=== PATIENT | female | born 1965 | race Caucasian/White ===

== ENCOUNTER → 2019-01-24 | Outpatient (CLI) | payer OTHER, MEDICARE, MEDICAID ==
--- NOTE | 2019-01-28 01:36 | ECWPNPC ---
PATIENT NAME: FRANCES BLISS : 1965 GENDER: FEMALE VISIT DATE: 01/24/2019 DISCHARGE DATE: 01/24/19 1617 VISIT LOCKED DATE TIME: PHYSICIAN: FLORINDA KIM RESOURCE: FLORINDA KIM REASON FOR APPOINTMENT 1. NON COMP BACK PAIN HISTORY OF PRESENT ILLNESS NEW PATIENT CONSULT: WHEN DID YOUR PAIN FIRST START? ACCIDENT AT WORK. BRIEFLY DESCRIBE HOW YOUR PAIN STARTED? CONSTANT, STEADY STABBING AND ACHY. HOW DOES YOUR PAIN CHANGE WITH TIME? WORSENS WITH PROLONGED SITTING. DOES YOUR PAIN AWAKEN YOU FROM SLEEP? YES . HOW MANY HOURS OF SLEEP DO YOU NORMALLY GET? 6. ANY DIAGNOSTIC TESTING? MRI 2017. FACILITY WHERE TESTS WERE DONE? OTHER FACILITY. PAIN TREATMENT TREATMENT YES CANCER HAVE YOU EVER HAD ANY TYPE OF CANCER?NO NO. 53 YR OLD FEMALE WITH HX OF WORK RELATED BACK INJURY. MRI 2017: SHOWS MODERATELY SEVERE STENOSIS AT L4-5DISC BULGE L2-3L5-S1 DISC BULGE ABUTS LEFT S1 NERVE DISPLACING POSTERIORLY BUT NOT CAUSING CANAL STENOSIS.UNDER CARE OF PCP AND TAKES OPIATES: OXYCODONE 10MG X 4 TIMES/DAYSGABAPENTIN 800MG X3 TIMESPAIN 07/22 AND RADIATES DOWN TO BOTH HIPS AND DOWN LEGS,. PAIN SCREENING: PATIENT HAS A COMPLAINT OF ACUTE OR CHRONIC PAIN :YES FALL RISK SCREENING: SCREENING : NO FALLS IN THE PAST YEAR. DUARTE INVENTORY: QUESTIONNAIRE ASSESSEDTBD SCORE VALUE CALCULATED TBD CURRENT MEDICATIONS TAKING ZOLOFT 100 MG TABLET 2ABLET ORALLY ONCE A DAY TAKING BUSPIRONE HCL 10 MG TABLET 1 TABLET ORALLY TWICE A DAY TAKING ALBUTEROL SULFATE (2.5 MG/3ML) 0.083% NEBULIZATION SOLUTION 3 ML NEEDED INHALATION THREE TIMES A DAY TAKING BUPROPION HCL 100 MG TABLET 2 TABLET ORALLY TWICE A DAY TAKING FOLIC ACID 1 MG TABLET 1 TABLET ORALLY ONCE A DAY TAKING HYDROXYCHLOROQUINE SULFATE 200 MG TABLET 1 TABLET WITH FOOD OR MILK ORALLY BID TAKING METHOTREXATE 2.5 MG TABLET ORALLY 4 TABS TWICE A DAY TAKING GABAPENTIN 400 MG CAPSULE 2 CAPSULE ORALLY TID TAKING OMEPRAZOLE 20 MG CAPSULE DELAYED RELEASE 1 CAPSULE ORALLY ONCE A DAY TAKING OXYCODONE HCL 10 MG TABLET 1 TABLET NEEDED ORALLY EVERY 6 HRS TAKING SERTRALINE HCL 100 MG TABLET 2 TABLET ORALLY ONCE A DAY NOT-TAKING PREDNISONE 20 MG TABLET 3 TABLETS WITH FOOD OR MILK ORALLY ONCE A DAY NOT-TAKING LIDODERM 5 % PATCH 1 PATCH TO INTACT SKIN REMOVE AFTER 12 HOURS TO LOW BACK EXTERNALLY ONCE A DAY NOT-TAKING FLEXERIL 10 MG TABLET 1 TABLET ORALLY TID MEDICATION LIST REVIEWED AND RECONCILED WITH THE PATIENT PAST MEDICAL HISTORY FATTY LIVER SMOKER HERNIATED DISCS ADRENAL MASS ANXIETY CHRONIC PAIN DEPRESSION FIBROMYALGIA HYPERLIPDEMIA SPINAL STENOSIS PSORIATAIC ARTHRITIS MIGRAINES SLEEP APNEA RIGHT CERVICAL RADICULOPATHY REFLUX ASTHMA ALLERGIES N.K.D.A. SURGICAL HISTORY C SECTION 1987 D & C FAMILY HISTORY FATHER: MOTHER: SON(S): ALIVE DAUGHTER(S): ALIVE UNKNOWN MUCH HISTORY SHE WAS ADOPTED. SOCIAL HISTORY GENERAL: TOBACCO USE ARE YOU A:CURRENT SMOKER ARE YOU INTERESTED IN QUITTING?THINKING ABOUT QUITTING COUNSELED THE PATIENT ON SMOKING CESSATION, EDUCATION [id number]/15/2019 HOW MANY CIGARETTES A DAY DO YOU SMOKE?6-10 PATIENT COUNSELED ON THE DANGERS OF TOBACCO USE AND URGED TO QUIT:01/24/2019 LUNG CANCER SCREENING SMOKING STATUS:CURRENT SMOKER IS THE PATIENT BETWEEN THE AGE OF 57 AND 79?YES HAS THE PATIENT EVER BEEN DIAGNOSED WITH LUNG CANCER?NO ALCOHOL SCREENING DID YOU HAVE A DRINK CONTAINING ALCOHOL IN THE PAST YEAR?NO POINTS0 INTERPRETATIONNEGATIVE RECREATIONAL DRUG USE DRUG USE?NO CAFFEINE CAFFEINE USE?YES HOW OFTEN AND HOW MUCH? DAILY A COUPLE CUPS ORTHODOX [id number] YARSANI LANGUAGE LANGUAGES SPOKEN:SWEDISH EDUCATION LEVEL OF EDUCATION:FINISHED COLLEGE LEARNING BARRIERS / SPECIAL NEEDS SPECIAL DEVICES?YES CPAP DOMESTIC VIOLENCE DO YOU FEEL SAFE IN YOUR ENVIRONMENT?YES OCCUPATION: DISABLED. DIET: REGULAR. EXERCISE: WALKS. MARITAL STATUS: .. OTHERS AT HOME: CUSTODY OF GRANDSON. PAIN CLINIC PFS, CLERGY, PUBLIC HEALTH REFERRALS CLERGY REFERRAL NEEDED?NO WAS THE PROVIDER NOTIFIED OF ANY PERTINENT INFO?NO PFS REFERRAL NEEDED?NO PUBLIC HEALTH REFERRAL NEEDED?NO ADVANCE DIRECTIVE ADVANCE DIRECTIVE DISCUSSED WITH PATIENT:YES ISCUSSED WITH PT AND SHE DECLINES ANY PRINTED MATERIAL AT THIS TIME OR ANY ASSISTANCE FILLING IT OUT HOSPITALIZATION/MAJOR DIAGNOSTIC PROCEDURE SURGERY RELATED REVIEW OF SYSTEMS REVIEWED BY: PROVIDER: ROBB Hair CONSTITUTIONAL: ANY CHANGE IN YOUR MEDICAL CONDITION? NO . CHILLS NO . FEVER NO . INFECTION: DO YOU HAVE NEW INFECTIONS? NO . DO YOU HAVE HISTORY OF MRSA? NO . MUSCULOSKELETAL: ANY NEW PATTERNS OF PAIN OR NUMBNESS? INCREASED PAIN BILATERAL LOWER BACK AND AROUND TO HIPS DOWN LEG TO FEEL . SYTEMIC LUPUS NO . GASTROENTEROLOGY: ANY NEW CHANGE IN BOWEL CONTROL? NO . BARRETTS ESOPHAGUS NO . CIRRHOSIS NO . HEPATITIS NO . LIVER FAILURE NO . ACID REFLUX NO . UNEXPLAINED WEIGHT LOSS NO . GENITOURINARY: ANY NEW CHANGE IN BLADDER CONTROL? NO . IS THERE A CHANCE YOU COULD BE ? NO . HEMATOLOGY/LYMPH: DO YOU TAKE ANY BLOOD THINNERS? (FOR EXAMPLE- COUMADIN, PLAVIX, AGGRENOX, PLATEL, PRADAXA, OR XARELTO) NO . WHEN WAS YOUR LAST DOSE? DATE: TIME: . LOW PLATELET COUNT NO . SICKLE CELL DISEASE NO . VON WILLIEBRANDS NO . FACTOR V LEIDEN NO . THALLASEMIA NO . ANEMIA NO . EASY BRUISING NO . NEUROLOGY: HAVE YOU FALLEN IN THE PAST 12 MONTHS? NO . ANY NEW EXTREMITY NUMBNESS OR WEAKNESS? NO . HEAD INJURY NO . DEMENTIA NO . CEREBRAL PALSY NO . MULTIPLE SCLEROSIS NO . DIZZINESS NO . HEADACHE NO . STROKES NO . VERTIGO NO . CARDIOLOGY: DO YOU HAVE A PACEMAKER OR DEFIBRILLATOR? NO . ANGINA NO . HEART ATTACK NO . HEART SURGERY NO . CONGESTIVE HEART FAILURE/FLUID OVERLOAD NO . CHEST PAIN NO . HIGH BLOOD PRESSURE NO . IRREGULAR HEART BEAT NO . RESPIRATORY: HAVE YOU BEEN SICK IN THE PAST WEEK? NO . FEVER NO . FLU LIKE SYMPTOMS? NO . CPAP NO . BYPAP NO . ASTHMA YES . EMPHYSEMA NO . CHRONIC LUNG DISEASES NO . SHORTNESS OF BREATH ON EXERTION NO . DO YOU USE ANY TYPE OF TOBACCO (SMOKE, SMOKELESS, CHEW)? NO . COUGH NO . SNORING NO . INTEGUMENTARY: DO YOU HAVE ANY RASHES OR OPEN SORES? NO . ALLERGIC/IMMUNO: ARE YOU ALLERGIC TO IV DYE? NO . ANY NEW ALLERGIES? NO . PSYCHIATRIC: DO YOU HAVE THOUGHTS OF HURTING YOURSELF OR SOMEONE ELSE? NO . ARE YOU ABUSED, NEGLECTED, OR IN AN UNSAFE ENVIRONMENT? NO . ENDOCRINOLOGY: ARE YOU DIABETIC? NO . THYROID DISORDER NO . OTHER: DO YOU NEED ANY PRESCRIPTIONS? NO . IF YES, PLEASE LIST: ____ . ANY NEW PROBLEMS WITH YOUR MEDICATIONS? NO . WHEN DID YOU LAST EAT? ____ . WHEN DID YOU LAST DRINK? ____ . WHAT DID YOU LAST DRINK? ____ . NAME OF PERSON DRIVING YOU HOME? ____ . DO YOU HAVE ANY OTHER QUESTIONS OR CONCERNS NO . VITAL SIGNS WT 212.2 LBS, HT 64 IN, BMI 36.42 INDEX, BP 118/60 MM HG, HR 92 /MIN, RR 16 /MIN, TEMP 96.5 F, OXYGEN SAT % 96%, NA INITIALS 14:10 SC. EXAMINATION GENERAL EXAMINATION: GENERAL APPEARANCE: APPEARS OLDER THAN STATED AGE, VERY UNCOMFORTABLE AND RESTLESS DURING EXAM. PSYCHAPPROPRIATE MOOD AND AFFECT . HEENT:EOMI, NO SCLERAL ICTERUS, NARES PATENT, ORAL MUCOSA MOIST. FACE:UNREMARKABLE. LUNGS:CLEAR TO AUSCULTATION BILATERALLY, NO WHEEZES, RHONCHI, RALES. HEART:NO MURMURS, REGULAR RATE AND RHYTHM. BACK: NORMAL ALIGNMENT TENDERNESS TO LOWER LUMBAR SPINE L5 PAIN WITH ROTATION AND EXTENSION OF LUMBAR SPINE SLR POSITIVE RIGTH SIDE MERARY TEST + RIGHT SIDE . THORACIC SPINE NEGATIVE FOR PAIN WITH PALPATION OF THORACIC SPINE.. SKIN:NORMAL, NO RASH. NEUROLOGIC EXAM: DTR'S 2+ BILATERALLY THROUGHOUT. ASSESSMENTS LOW BACK PAIN ASSOCIATED WITH A SPINAL DISORDER OTHER THAN RADICULOPATHY OR SPINAL STENOSIS - M54.5 (PRIMARY) TREATMENT LOW BACK PAIN ASSOCIATED WITH A SPINAL DISORDER OTHER THAN RADICULOPATHY OR SPINAL STENOSIS CLINICAL NOTES: CONSULTATION DONE IN CONJUNCTION WITH DR BURGER :BILAT THERAPUETIC SI JOINT BLOCK.PATIENT AGREED.PATIENT WILL CONTINUE TO RECEIVE HER PAIN MEDICATION FROM PCP.. PROCEDURE CODES FA211 ESTABILISHED PATIENT [facility] FACILITY CHARGE DISPOSITION & COMMUNICATION FOLLOW UP POST PROCEDURE (REASON: BILAT THERAPUETIC SI JOINT BLOCK) ELECTRONICALLY SIGNED BY SELMA BAEZ ON 01/27/2019 AT 04:42 PM EDT DISCLAIMER : THIS IS A VISIT SUMMARY EXTRACTED FROM THE [employer] CHART. IT IS NOT A COPY OF THE [employer] PROGRESS NOTE. MAGDA
== END ==
LOC: M PAIN 14:00
PROVIDERS: ATTEND Nurse Practitioner Family
DX: M54.5 Low back pain (principal); G89.29 Other chronic pain; F17.210 Nicotine dependence, cigarettes, uncomplicated; Z86.59 Personal history of other mental and behavioral disorders; M79.7 Fibromyalgia; E78.5 Hyperlipidemia, unspecified; L40.50 Arthropathic psoriasis, unspecified; G43.909 Migraine, unspecified, not intractable, without status migrainosus; G47.30 Sleep apnea, unspecified; K21.9 Gastro-esophageal reflux disease without esophagitis; J45.909 Unspecified asthma, uncomplicated; Z79.899 Other long term (current) drug therapy

== ENCOUNTER → 2019-02-04 | Outpatient (CLI) | payer MEDICARE, MEDICAID ==
[~2019-02-04] MED LIST: BUPIVACAINE HCL 0.25% 30 ML VIAL As Ordered ONE; ISOVUE-M 300 61% 15ML VIAL (Q9967) As Ordered ONE; LIDOCAINE 1% SDV INJ 30 ML VIAL As Ordered ONE; TRIAMCINOLONE ACETONIDE SUSP 40 MG/ML VIAL (J3301) As Ordered ONE; diazePAM 5 MG TAB As Ordered ONE; oxyCODONE 5MG TAB As Ordered ONE
--- NOTE | 2019-02-04 17:08 | REP ---
SI joint series: Four views: History: Bilateral SI joint injection for pain. 20 seconds of fluoroscopy time is reported. Findings: A sequence of four last image hold fluoroscopically obtained spot radiographs of the SI joints document various needle positions associated with SI joint injection procedure. An IUD is seen in the pelvis. Electronically Signed by Ruiz Méndez MD 02/04/2019 05:27 P
--- NOTE | 2019-02-10 00:08 | ECWPNPC ---
PATIENT NAME: FRANCES BLISS : 1965 GENDER: FEMALE VISIT DATE: 02/04/2019 DISCHARGE DATE: 02/04/19 1444 VISIT LOCKED DATE TIME: PHYSICIAN: ANNALISA BURGER MD RESOURCE: ANNALISA BURGER MD REASON FOR APPOINTMENT 1. BILAT SI HISTORY OF PRESENT ILLNESS HISTORY OF PRESENT ILLNESS: PAIN THE PATIENT DESCRIBES THE PAIN... FALL RISK SCREENING: SCREENING :NO FALLS REPORTED IN THE LAST YEAR CURRENT MEDICATIONS TAKING BUSPIRONE HCL 10 MG TABLET 1 TABLET ORALLY TWICE A DAY, NOTES: 02/03 11PM TAKING ALBUTEROL SULFATE (2.5 MG/3ML) 0.083% NEBULIZATION SOLUTION 3 ML NEEDED INHALATION THREE TIMES A DAY, NOTES: 2 WEEKS TAKING BUPROPION HCL 100 MG TABLET 2 TABLET ORALLY TWICE A DAY, NOTES: 02/03 11PM TAKING FOLIC ACID 1 MG TABLET 1 TABLET ORALLY ONCE A DAY, NOTES: 02/03 9AM TAKING HYDROXYCHLOROQUINE SULFATE 200 MG TABLET 1 TABLET WITH FOOD OR MILK ORALLY BID, NOTES: 02/03 9AM TAKING METHOTREXATE 2.5 MG TABLET ORALLY 4 TABS TWICE A DAY, NOTES: 2 WEEKS AGO TAKING GABAPENTIN 400 MG CAPSULE 2 CAPSULE ORALLY TID, NOTES: 02/03 11PM TAKING OMEPRAZOLE 20 MG CAPSULE DELAYED RELEASE 1 CAPSULE ORALLY ONCE A DAY, NOTES: 02/03 9AM TAKING OXYCODONE HCL 10 MG TABLET 1 TABLET NEEDED ORALLY EVERY 6 HRS, NOTES: 02/04 3AM TAKING SERTRALINE HCL 100 MG TABLET 2 TABLET ORALLY ONCE A DAY, NOTES: 02/03 9AM NOT-TAKING ZOLOFT 100 MG TABLET 2ABLET ORALLY ONCE A DAY, NOTES: 02/03 9AM NOT-TAKING PREDNISONE 20 MG TABLET 3 TABLETS WITH FOOD OR MILK ORALLY ONCE A DAY NOT-TAKING LIDODERM 5 % PATCH 1 PATCH TO INTACT SKIN REMOVE AFTER 12 HOURS TO LOW BACK EXTERNALLY ONCE A DAY NOT-TAKING FLEXERIL 10 MG TABLET 1 TABLET ORALLY TID MEDICATION LIST REVIEWED AND RECONCILED WITH THE PATIENT PAST MEDICAL HISTORY FATTY LIVER SMOKER HERNIATED DISCS ADRENAL MASS ANXIETY CHRONIC PAIN DEPRESSION FIBROMYALGIA HYPERLIPDEMIA SPINAL STENOSIS PSORIATAIC ARTHRITIS MIGRAINES SLEEP APNEA RIGHT CERVICAL RADICULOPATHY REFLUX ASTHMA ALLERGIES IV DYE: NAUSEA/VOMITING - ALLERGY - CRITICALITY LOW - ONSET DATE 02/05/2012 SURGICAL HISTORY C SECTION 1987 D & C FAMILY HISTORY FATHER: MOTHER: SON(S): ALIVE DAUGHTER(S): ALIVE UNKNOWN MUCH HISTORY SHE WAS ADOPTED. SOCIAL HISTORY GENERAL: TOBACCO USE ARE YOU A:CURRENT SMOKER ARE YOU INTERESTED IN QUITTING?THINKING ABOUT QUITTING COUNSELED THE PATIENT ON SMOKING CESSATION, EDUCATION [id number]/15/2019 HOW MANY CIGARETTES A DAY DO YOU SMOKE?6-10 PATIENT COUNSELED ON THE DANGERS OF TOBACCO USE AND URGED TO QUIT:02/04/2019 LATEX QUESTIONNAIRE LATEX ALLERGY : HAVE YOU EVER DEVELOPED ANY TYPE OF REACTION AFTER HANDLING LATEX PRODUCTS SUCH RUBBER GLOVES, CONDOMS, DIAPHRAGMS, BALLOONS, SOCKS, OR UNDERWEAR?NO LATEX ALLERGY : HAVE YOU EVER DEVELOPED ANY TYPE OF REACTION DURING OR AFTER DENTAL APPOINTMENT, VAGINAL/RECTAL EXAMINATION, SURGICAL PROCEDURE, OR ANY OTHER EXPOSURE?NO LATEX RISK : HAVE YOU EVER HAD ANY DIFFICULTY BREATHING OR HIVES AFTER EATING OR HANDLING ANY FRUITS, OR VEGETABLES; SUCH KIWI, BANANAS, STONE FRUITS, OR CHESTNUTSNO LATEX RISK : DO YOU HAVE A PREVIOUS PERSONAL HISTORY OF MORE THAN NINE SURGERIES, SPINA BIFIDA, OR REPEATED CATHERTIZATIONS? NO LATEX RISK : ARE YOU FREQUENTLY EXPOSED TO LATEX PRODUCTS IN YOUR OCCUPATION?NO DATE ASKED : 02/04/2019 LUNG CANCER SCREENING SMOKING STATUS:CURRENT SMOKER IS THE PATIENT BETWEEN THE AGE OF 57 AND 79?YES HAS THE PATIENT EVER BEEN DIAGNOSED WITH LUNG CANCER?NO ALCOHOL SCREENING DID YOU HAVE A DRINK CONTAINING ALCOHOL IN THE PAST YEAR?NO POINTS0 INTERPRETATIONNEGATIVE RECREATIONAL DRUG USE DRUG USE?NO CAFFEINE CAFFEINE USE?YES HOW OFTEN AND HOW MUCH? DAILY A COUPLE CUPS TAOISM [id number] [employer]ENT[employer] LANGUAGE LANGUAGES SPOKEN:POLISH EDUCATION LEVEL OF EDUCATION:FINISHED COLLEGE LEARNING BARRIERS / SPECIAL NEEDS SPECIAL DEVICES?YES CPAP DOMESTIC VIOLENCE DO YOU FEEL SAFE IN YOUR ENVIRONMENT?YES OCCUPATION: DISABLED. DIET: REGULAR. EXERCISE: WALKS. MARITAL STATUS: .. OTHERS AT HOME: CUSTODY OF GRANDSON. PAIN CLINIC PFS, CLERGY, PUBLIC HEALTH REFERRALS WAS THE PROVIDER NOTIFIED OF ANY PERTINENT INFO?YES HAS THE PATIENT BEEN EDUCATED REGARDING HIS/HER PLAN OF CARE?YES PLEASE DOCUMENT ANY ADDTIONAL DETAILS. ORIENTED TO PMC PROCEDURE, BILATERAL SIJ HAS THE PATIENT BEEN EDUCATED REGARDING PAIN, THE RISK FOR PAIN, THE IMPORTANCE OF EFFECTIVE PAIN MANAGEMENT, AND THE PAIN ASSESSMENT PROCESS?YES ADVANCE DIRECTIVE ADVANCE DIRECTIVE DISCUSSED WITH PATIENT:YES ISCUSSED WITH PT AND SHE DECLINES ANY PRINTED MATERIAL AT THIS TIME OR ANY ASSISTANCE FILLING IT OUT HOSPITALIZATION/MAJOR DIAGNOSTIC PROCEDURE SURGERY RELATED REVIEW OF SYSTEMS REVIEWED BY: PROVIDER: . CONSTITUTIONAL: ANY CHANGE IN YOUR MEDICAL CONDITION? NO . CHILLS NO . FEVER NO . INFECTION: DO YOU HAVE NEW INFECTIONS? NO . DO YOU HAVE HISTORY OF MRSA? NO . MUSCULOSKELETAL: ANY NEW PATTERNS OF PAIN OR NUMBNESS? NO . GASTROENTEROLOGY: ANY NEW CHANGE IN BOWEL CONTROL? NO . GENITOURINARY: ANY NEW CHANGE IN BLADDER CONTROL? NO . IS THERE A CHANCE YOU COULD BE ? NO . HEMATOLOGY/LYMPH: DO YOU TAKE ANY BLOOD THINNERS? (FOR EXAMPLE- COUMADIN, PLAVIX, AGGRENOX, PLATEL, PRADAXA, OR XARELTO) NO . WHEN WAS YOUR LAST DOSE? DATE: TIME: . NEUROLOGY: HAVE YOU FALLEN IN THE PAST 12 MONTHS? NO . ANY NEW EXTREMITY NUMBNESS OR WEAKNESS? NO . CARDIOLOGY: DO YOU HAVE A PACEMAKER OR DEFIBRILLATOR? NO . RESPIRATORY: HAVE YOU BEEN SICK IN THE PAST WEEK? NO . FEVER NO . FLU LIKE SYMPTOMS? NO . COUGH NO . INTEGUMENTARY: DO YOU HAVE ANY RASHES OR OPEN SORES? NO . ALLERGIC/IMMUNO: ARE YOU ALLERGIC TO IV DYE? YES . ANY NEW ALLERGIES? NO . PSYCHIATRIC: DO YOU HAVE THOUGHTS OF HURTING YOURSELF OR SOMEONE ELSE? NO . ARE YOU ABUSED, NEGLECTED, OR IN AN UNSAFE ENVIRONMENT? NO . ENDOCRINOLOGY: ARE YOU DIABETIC? NO . OTHER: DO YOU NEED ANY PRESCRIPTIONS? NO . IF YES, PLEASE LIST: ____ . ANY NEW PROBLEMS WITH YOUR MEDICATIONS? NO . WHEN DID YOU LAST EAT? 02/03 7PM . WHEN DID YOU LAST DRINK? 02/04 6AM . WHAT DID YOU LAST DRINK? COFFEE WITH CREAMER . NAME OF PERSON DRIVING YOU HOME? DEZ . DO YOU HAVE ANY OTHER QUESTIONS OR CONCERNS NO . VITAL SIGNS WT 208.4 LBS, HT 64 IN, BMI 35.77 INDEX, BP 130/65 MM HG, HR 90 /MIN, RR 16 /MIN, TEMP 97.4 F, OXYGEN SAT % 95%, SAFE IN ENV? (Y/N) Y, NA INITIALS SC 12:25, REVIEWED BY: ANTONY. ASSESSMENTS SACROILIITIS, NOT ELSEWHERE CLASSIFIED - M46.1 (PRIMARY) PROCEDURES PN SI PRE PROCEDURE DIAGNOSIS SACROILIITIS, SACROILIAC JOINT DYSFUNCTION POST PROCEDURE DIAGNOSIS SACROILIITIS, SACROILIAC JOINT DYSFUNCTION PROCEDURE BILATERAL SACROILIAC JOINT BLOCK SURGEON DR. ANNALISA BURGER DIRECTOR OF PERSONNEL NONE ANESTHESIA LOCAL PRE PROCEDURE NOTE PATIENT WITH HISTORY OF CHRONIC LOW BACK PAIN. I EVALUATED THE PATIENT AND REVIEWED THE CHART. I WENT OVER THE RISKS, ALTERNATIVES, AND BENEFITS ASSOCIATED WITH THIS PROCEDURE. THE PATIENT WOULD LIKE TO PROCEED AND GAVE CONSENT TO PERFORM THE PROCEDURE. THE PATIENT DENIES UNEXPLAINABLE WEIGHT LOSS, FEVER, CHILLS, OR NEW CHANGES IN URINARY OR BOWEL CONTROL DESCRIPTION OF PROCEDURE THE PATIENT WAS BROUGHT TO THE PROCEDURE ROOM AND PLACED IN THE PRONE POSITION. THE LUMBOSACRAL AREA WAS CLEANED WITH CHLORAPREP SOLUTION AND DRAPED ASEPTICALLY. THE PROCEDURE WAS DONE UNDER STERILE CONDITIONS. I CHECKED LATERALITY AND THE LEVEL WHERE THE PROCEDURE WAS GOING TO BE PERFORMED WITH THE PATIENT AND THE SUPPORTING STAFF AT THE MOMENT OF THE TIME OUT IN THE PROCEDURE ROOM. UNDER FLUOROSCOPIC GUIDANCE, TARGET POINT WAS SELECTED AT THE LOWER BORDER OF THE RIGHT AND LEFT SACROILIAC JOINT. TARGET POINT WAS SELECTED AFTER MEDIAL ROTATION AND TILT OF THE MAGNIFIER OF THE C-ARM. LIDOCAINE WAS USED TO NUMB THE SKIN AND SUBCUTANEOUS TISSUE BELOW IT. A SPINAL NEEDLE, 22-GAUGE, WAS ADVANCED UNDER FLUOROSCOPIC GUIDANCE AND FOLLOWING PATIENT FEEDBACK UNTIL THE TARGET AREA WAS TOUCHED. THE POSITION OF THE NEEDLE WAS VERIFIED WITH AP AND LATERAL VIEWS. AFTER PROPER POSITION OF THE NEEDLE WAS ACHIEVED, ISOVUE M DYE 30%, 0.25 ML, WAS INJECTED SHOWING SPREAD OF THE DYE. THEN, A SOLUTION OF 20 MG OF KENALOG WAS INJECTED IN RIGHT AND LEFT JOINT WITH 3 ML OF BUPIVACAINE 0.125%. THERE WAS NO EVIDENCE OF BLOOD, PARESTHESIA OR CEREBROSPINAL FLUID DURING THE PROCEDURE. THE PATIENT WAS SENT TO THE RECOVERY ROOM. THE PATIENT WAS MOVING THE EXTREMITIES AND DOING WELL. THERE WAS NO COMPLICATION DURING THE PROCEDURE. FLUOROSCOPY TIME WAS 20 SECONDS POST PROCEDURE NOTE THE PATIENT WILL BE SEEN IN A FOLLOW UP IN THE NEXT FEW WEEKS. INSTRUCTIONS WERE GIVEN, QUESTIONS WERE ANSWERED, AND THE PATIENT EXPRESSED UNDERSTANDING AND AGREED WITH THE PLAN. I, AMEENA MEJÍA, DOCUMENTED THE ABOVE INFORMATION ACTING A SCRIBE FOR DR. BURGER. I HAVE REVIEWED THE ABOVE DOCUMENT, WRITTEN BY AMEENA DAVE AND I VERIFY THAT IT IS ACCURATE. DIAGNOSTIC IMAGING [facility] FLUORO GUIDANCE (PAIN)[id number] PROCEDURE CODES 6045F RADXPS IN END [id number] PXD [id number] INJECT SACROILIAC JOINT, MODIFIERS: 50 DISPOSITION & COMMUNICATION FOLLOW UP 3 WEEKS ELECTRONICALLY SIGNED BY ANNALISA BURGER MD, MD ON 02/09/2019 AT 07:56 PM EDT DISCLAIMER : THIS IS A VISIT SUMMARY EXTRACTED FROM THE [employer] CHART. IT IS NOT A COPY OF THE [employer] PROGRESS NOTE. MTDMich
== END ==
LOC: M PAIN 12:15
PROVIDERS: ATTEND Anesthesiology
DX: G89.29 Other chronic pain (principal); M46.1 Sacroiliitis, not elsewhere classified; M53.88 Other specified dorsopathies, sacral and sacrococcygeal region; M79.7 Fibromyalgia; E78.5 Hyperlipidemia, unspecified; L40.52 Psoriatic arthritis mutilans; G43.909 Migraine, unspecified, not intractable, without status migrainosus; J45.909 Unspecified asthma, uncomplicated; G47.30 Sleep apnea, unspecified; K21.9 Gastro-esophageal reflux disease without esophagitis; F41.9 Anxiety disorder, unspecified; F32.9 Major depressive disorder, single episode, unspecified; F17.210 Nicotine dependence, cigarettes, uncomplicated; Z79.899 Other long term (current) drug therapy; Z91.041 Radiographic dye allergy status
CPT/HCPCS: G0260; J3301

== ENCOUNTER → 2019-02-19 | Outpatient (CLI) | payer MEDICARE, MEDICAID ==
--- NOTE | 2019-02-21 01:30 | ECWPNPC ---
PATIENT NAME: FRANCES BLISS : 1965 GENDER: FEMALE VISIT DATE: 02/19/2019 DISCHARGE DATE: 02/19/19 1344 VISIT LOCKED DATE TIME: PHYSICIAN: FLORINDA KIM RESOURCE: FLORINDA KIM REASON FOR APPOINTMENT 1. POST PROC HISTORY OF PRESENT ILLNESS HISTORY OF PRESENT ILLNESS: PAIN THE PATIENT DESCRIBES THE PAIN... SEVERITY - PAIN SCORE OF9/10 53 YR OLD FEMALE POST BILAT SIJ. PATIENT SAYS SHE FEELS THIS HAS NOT WORKED HER PAIN IS SEVERE TODAY. SHE IS COMPLAINING OF LEFT SIDED RADICULOPTHY. SHE IS MANAGED BY PCP WITH PAIN MEDICATION. FALL RISK SCREENING: SCREENING :NO FALLS REPORTED IN THE LAST YEAR CURRENT MEDICATIONS TAKING BUSPIRONE HCL 10 MG TABLET 1 TABLET ORALLY TWICE A DAY TAKING ALBUTEROL SULFATE (2.5 MG/3ML) 0.083% NEBULIZATION SOLUTION 3 ML NEEDED INHALATION THREE TIMES A DAY TAKING BUPROPION HCL 100 MG TABLET 2 TABLET ORALLY TWICE A DAY TAKING FOLIC ACID 1 MG TABLET 1 TABLET ORALLY ONCE A DAY TAKING HYDROXYCHLOROQUINE SULFATE 200 MG TABLET 1 TABLET WITH FOOD OR MILK ORALLY BID TAKING METHOTREXATE 2.5 MG TABLET ORALLY 4 TABS TWICE A DAY TAKING GABAPENTIN 400 MG CAPSULE 2 CAPSULE ORALLY TID TAKING OMEPRAZOLE 20 MG CAPSULE DELAYED RELEASE 1 CAPSULE ORALLY ONCE A DAY TAKING OXYCODONE HCL 10 MG TABLET 1 TABLET NEEDED ORALLY EVERY 6 HRS TAKING SERTRALINE HCL 100 MG TABLET 2 TABLET ORALLY ONCE A DAY NOT-TAKING ZOLOFT 100 MG TABLET 2ABLET ORALLY ONCE A DAY NOT-TAKING PREDNISONE 20 MG TABLET 3 TABLETS WITH FOOD OR MILK ORALLY ONCE A DAY NOT-TAKING LIDODERM 5 % PATCH 1 PATCH TO INTACT SKIN REMOVE AFTER 12 HOURS TO LOW BACK EXTERNALLY ONCE A DAY NOT-TAKING FLEXERIL 10 MG TABLET 1 TABLET ORALLY TID MEDICATION LIST REVIEWED AND RECONCILED WITH THE PATIENT PAST MEDICAL HISTORY FATTY LIVER SMOKER HERNIATED DISCS ADRENAL MASS ANXIETY CHRONIC PAIN DEPRESSION FIBROMYALGIA HYPERLIPDEMIA SPINAL STENOSIS PSORIATAIC ARTHRITIS MIGRAINES SLEEP APNEA RIGHT CERVICAL RADICULOPATHY REFLUX ASTHMA ALLERGIES IV DYE: NAUSEA/VOMITING - ALLERGY - CRITICALITY LOW - ONSET DATE 02/05/2012 SURGICAL HISTORY C SECTION 1987 D & C FAMILY HISTORY FATHER: MOTHER: SON(S): ALIVE DAUGHTER(S): ALIVE UNKNOWN MUCH HISTORY SHE WAS ADOPTED. SOCIAL HISTORY GENERAL: TOBACCO USE ARE YOU A:CURRENT SMOKER ARE YOU INTERESTED IN QUITTING?THINKING ABOUT QUITTING COUNSELED THE PATIENT ON SMOKING CESSATION, EDUCATION [id number]/15/2019 HOW MANY CIGARETTES A DAY DO YOU SMOKE?6-10 PATIENT COUNSELED ON THE DANGERS OF TOBACCO USE AND URGED TO QUIT:02/19/2019 LATEX QUESTIONNAIRE LATEX ALLERGY : HAVE YOU EVER DEVELOPED ANY TYPE OF REACTION AFTER HANDLING LATEX PRODUCTS SUCH RUBBER GLOVES, CONDOMS, DIAPHRAGMS, BALLOONS, SOCKS, OR UNDERWEAR?NO LATEX ALLERGY : HAVE YOU EVER DEVELOPED ANY TYPE OF REACTION DURING OR AFTER DENTAL APPOINTMENT, VAGINAL/RECTAL EXAMINATION, SURGICAL PROCEDURE, OR ANY OTHER EXPOSURE?NO LATEX RISK : HAVE YOU EVER HAD ANY DIFFICULTY BREATHING OR HIVES AFTER EATING OR HANDLING ANY FRUITS, OR VEGETABLES; SUCH KIWI, BANANAS, STONE FRUITS, OR CHESTNUTSNO LATEX RISK : DO YOU HAVE A PREVIOUS PERSONAL HISTORY OF MORE THAN NINE SURGERIES, SPINA BIFIDA, OR REPEATED CATHERTIZATIONS? NO LATEX RISK : ARE YOU FREQUENTLY EXPOSED TO LATEX PRODUCTS IN YOUR OCCUPATION?NO DATE ASKED : 02/19/2019 LUNG CANCER SCREENING SMOKING STATUS:CURRENT SMOKER IS THE PATIENT BETWEEN THE AGE OF 57 AND 79?YES HAS THE PATIENT EVER BEEN DIAGNOSED WITH LUNG CANCER?NO ALCOHOL SCREENING DID YOU HAVE A DRINK CONTAINING ALCOHOL IN THE PAST YEAR?NO POINTS0 INTERPRETATIONNEGATIVE RECREATIONAL DRUG USE DRUG USE?NO CAFFEINE CAFFEINE USE?YES HOW OFTEN AND HOW MUCH? DAILY A COUPLE CUPS CATHOLIC [id number] RELIGION LANGUAGE LANGUAGES SPOKEN:[place]KISTANI EDUCATION LEVEL OF EDUCATION:FINISHED COLLEGE LEARNING BARRIERS / SPECIAL NEEDS SPECIAL DEVICES?YES CPAP DOMESTIC VIOLENCE DO YOU FEEL SAFE IN YOUR ENVIRONMENT?YES OCCUPATION: DISABLED. DIET: REGULAR. EXERCISE: WALKS. MARITAL STATUS: .. OTHERS AT HOME: CUSTODY OF [employer]. PAIN CLINIC PFS, CLERGY, PUBLIC HEALTH REFERRALS WAS THE PROVIDER NOTIFIED OF ANY PERTINENT INFO?YES HAS THE PATIENT BEEN EDUCATED REGARDING HIS/HER PLAN OF CARE?YES PLEASE DOCUMENT ANY ADDTIONAL DETAILS. ORIENTED TO PMC PROCEDURE, BILATERAL SIJ HAS THE PATIENT BEEN EDUCATED REGARDING PAIN, THE RISK FOR PAIN, THE IMPORTANCE OF EFFECTIVE PAIN MANAGEMENT, AND THE PAIN ASSESSMENT PROCESS?YES ADVANCE DIRECTIVE ADVANCE DIRECTIVE DISCUSSED WITH PATIENT:YES DISCUSSED WITH PT AND SHE DECLINES ANY PRINTED MATERIAL AT THIS TIME OR ANY ASSISTANCE FILLING IT OUT HOSPITALIZATION/MAJOR DIAGNOSTIC PROCEDURE SURGERY RELATED REVIEW OF SYSTEMS REVIEWED BY: PROVIDER: ROBB Hair CONSTITUTIONAL: ANY CHANGE IN YOUR MEDICAL CONDITION? NO . CHILLS NO . FEVER NO . INFECTION: DO YOU HAVE NEW INFECTIONS? NO . DO YOU HAVE HISTORY OF MRSA? NO . MUSCULOSKELETAL: ANY NEW PATTERNS OF PAIN OR NUMBNESS? YES, NO NEW PAIN, PAIN IS GOING DOWN BACK OF LEG INTO CALF. TINGLING SENSATION ON LEFT SIDE . GASTROENTEROLOGY: ANY NEW CHANGE IN BOWEL CONTROL? NO . GENITOURINARY: ANY NEW CHANGE IN BLADDER CONTROL? NO . IS THERE A CHANCE YOU COULD BE ? NO . HEMATOLOGY/LYMPH: DO YOU TAKE ANY BLOOD THINNERS? (FOR EXAMPLE- COUMADIN, PLAVIX, AGGRENOX, PLATEL, PRADAXA, OR XARELTO) NO . WHEN WAS YOUR LAST DOSE? DATE: TIME: . NEUROLOGY: HAVE YOU FALLEN IN THE PAST 12 MONTHS? NO . ANY NEW EXTREMITY NUMBNESS OR WEAKNESS? NO . CARDIOLOGY: DO YOU HAVE A PACEMAKER OR DEFIBRILLATOR? NO . RESPIRATORY: HAVE YOU BEEN SICK IN THE PAST WEEK? NO . FEVER NO . FLU LIKE SYMPTOMS? NO . COUGH NO . INTEGUMENTARY: DO YOU HAVE ANY RASHES OR OPEN SORES? NO . ALLERGIC/IMMUNO: ARE YOU ALLERGIC TO IV DYE? YES . ANY NEW ALLERGIES? NO . PSYCHIATRIC: DO YOU HAVE THOUGHTS OF HURTING YOURSELF OR SOMEONE ELSE? NO . ARE YOU ABUSED, NEGLECTED, OR IN AN UNSAFE ENVIRONMENT? NO . ENDOCRINOLOGY: ARE YOU DIABETIC? NO . OTHER: DO YOU NEED ANY PRESCRIPTIONS? NO . IF YES, PLEASE LIST: ____ . ANY NEW PROBLEMS WITH YOUR MEDICATIONS? NO . WHEN DID YOU LAST EAT? ____ . WHEN DID YOU LAST DRINK? ____ . WHAT DID YOU LAST DRINK? ____ . NAME OF PERSON DRIVING YOU HOME? ____ . DO YOU HAVE ANY OTHER QUESTIONS OR CONCERNS NO . VITAL SIGNS WT 204.4 LBS, HT 64 IN, BMI 35.08 INDEX, BP 125/63 MM HG, HR 77 /MIN, RR 16 /MIN, TEMP 97.2 F, OXYGEN SAT % 99%, SAFE IN ENV? (Y/N) Y, NA INITIALS NJ 11:33, REVIEWED BY: ANTONY. EXAMINATION GENERAL EXAMINATION: GENERAL APPEARANCE:APPEARS UNCOMFORTABLE. PSYCHAPPROPRIATE MOOD AND AFFECT . LUNGS:CLEAR TO AUSCULTATION BILATERALLY, NO WHEEZES, RHONCHI, RALES. HEART:NO MURMURS, REGULAR RATE AND RHYTHM. BACK: LIMITED ROM TENDER LUMBAR PARASPINAL MUSCLE SLR POS LEFT SIDE REFLXES 2 +. ASSESSMENTS SACROILIITIS, NOT ELSEWHERE CLASSIFIED - M46.1 (PRIMARY) LOW BACK PAIN ASSOCIATED WITH A SPINAL DISORDER OTHER THAN RADICULOPATHY OR SPINAL STENOSIS - M54.5 TREATMENT SACROILIITIS, NOT ELSEWHERE CLASSIFIED CLINICAL NOTES: LESI L4-L5, L5-S1STOP METHOTREXATE AND HYDRCHLOROQUINE 4 DAYS PRIOR TO LESI PROCEDURE, THEN RE START 3 DAY AFTER PROCEDURE PER , ISTOP REGISTRY REVIEWED AND DEMONSTRATES COMPLLIANCE. (REF # [id number] ). PREVENTIVE MEDICINE PER GALI PT IS TO HOLD METOHOTREXATE AND PLAQUINIL4 FULL DAYS PRIOR TO EPIDURAL. PROCEDURE CODES FA211 ESTABILISHED PATIENT [facility] CHARGE DISPOSITION & COMMUNICATION FOLLOW UP POST PROCEDURE (REASON: LESI L4-L5, L5-S1) ELECTRONICALLY SIGNED BY SELMA BAEZ ON 02/20/2019 AT 04:20 PM EDT DISCLAIMER : THIS IS A VISIT SUMMARY EXTRACTED FROM THE [employer] CHART. IT IS NOT A COPY OF THE [employer] PROGRESS NOTE. RAYD
== END ==
LOC: M PAIN 11:00
PROVIDERS: ATTEND Nurse Practitioner Family
DX: G89.29 Other chronic pain (principal); M46.1 Sacroiliitis, not elsewhere classified; M54.5 Low back pain; K76.0 Fatty (change of) liver, not elsewhere classified; F41.9 Anxiety disorder, unspecified; F32.9 Major depressive disorder, single episode, unspecified; M79.7 Fibromyalgia; E78.5 Hyperlipidemia, unspecified; L40.50 Arthropathic psoriasis, unspecified; G43.909 Migraine, unspecified, not intractable, without status migrainosus; G47.30 Sleep apnea, unspecified; K21.9 Gastro-esophageal reflux disease without esophagitis; J45.909 Unspecified asthma, uncomplicated; F17.210 Nicotine dependence, cigarettes, uncomplicated; M54.12 Radiculopathy, cervical region; Z79.891 Long term (current) use of opiate analgesic; Z79.899 Other long term (current) drug therapy; Z91.041 Radiographic dye allergy status

== ENCOUNTER → 2019-03-12 | Outpatient (CLI) | payer MEDICARE, MEDICAID ==
[~2019-03-12] MED LIST changes: -BUPIVACAINE HCL 0.25% 30 ML VIAL As Ordered ONE; -TRIAMCINOLONE ACETONIDE SUSP 40 MG/ML VIAL (J3301) As Ordered ONE; +diphenhydrAMINE 25 MG CAP As Ordered ONE; +methylPREDNISolone SUSP 40 MG/ML (DEPO-medrol) VIAL (J1030) As Ordered ONE
--- NOTE | 2019-03-12 15:01 | REP ---
C-ARM VIEWS LUMBAR SPINE: CLINICAL HISTORY: Pain. Three C-arm views of lumbar spine performed during injection by Dr. Lloyd. A needle is seen at the lumbosacral junction and contrast is injected. 21 seconds fluoroscopy time utilized. Electronically Signed by Jean Carlos Sahu MD 03/14/2019 11:54 A
--- NOTE | 2019-03-31 00:17 | ECWPNPC ---
PATIENT NAME: FRANCES BLISS : 1965 GENDER: FEMALE VISIT DATE: 03/12/2019 DISCHARGE DATE: 03/12/19 1240 VISIT LOCKED DATE TIME: PHYSICIAN: ANNALISA BURGER MD RESOURCE: ANNALISA BURGER MD REASON FOR APPOINTMENT 1. LESI HISTORY OF PRESENT ILLNESS HISTORY OF PRESENT ILLNESS: PAIN THE PATIENT DESCRIBES THE PAIN... FALL RISK SCREENING: SCREENING :NO FALLS REPORTED IN THE LAST YEAR CURRENT MEDICATIONS TAKING BUSPIRONE HCL 10 MG TABLET 1 TABLET ORALLY TWICE A DAY, NOTES: 03/11/19 TAKING ALBUTEROL SULFATE (2.5 MG/3ML) 0.083% NEBULIZATION SOLUTION 3 ML NEEDED INHALATION THREE TIMES A DAY, NOTES: NONE LATELY TAKING BUPROPION HCL 100 MG TABLET 2 TABLET ORALLY TWICE A DAY, NOTES: 03/11/19 TAKING FOLIC ACID 1 MG TABLET 1 TABLET ORALLY ONCE A DAY, NOTES: 03/11/19 TAKING HYDROXYCHLOROQUINE SULFATE 200 MG TABLET 1 TABLET WITH FOOD OR MILK ORALLY BID, NOTES: 03/07/19 TAKING METHOTREXATE 2.5 MG TABLET ORALLY 4 TABS TWICE A DAY, NOTES: 03/07/19 TAKING GABAPENTIN 400 MG CAPSULE 2 CAPSULE ORALLY TID, NOTES: 03/11/19 TAKING OMEPRAZOLE 20 MG CAPSULE DELAYED RELEASE 1 CAPSULE ORALLY ONCE A DAY, NOTES: 03/11/19 TAKING OXYCODONE HCL 10 MG TABLET 1 TABLET NEEDED ORALLY EVERY 6 HRS, NOTES: 03/12/19 0300 TAKING SERTRALINE HCL 100 MG TABLET 2 TABLET ORALLY ONCE A DAY, NOTES: 03/11/19 TAKING TIZANIDINE HCL 2 MG TABLET 2 TABLET NEEDED ORALLY THREE TIMES A DAY TAKING ZOLOFT 100 MG TABLET 2ABLET ORALLY ONCE A DAY, NOTES: 03/11/19 NOT-TAKING PREDNISONE 20 MG TABLET 3 TABLETS WITH FOOD OR MILK ORALLY ONCE A DAY DISCONTINUED LIDODERM 5 % PATCH 1 PATCH TO INTACT SKIN REMOVE AFTER 12 HOURS TO LOW BACK EXTERNALLY ONCE A DAY DISCONTINUED FLEXERIL 10 MG TABLET 1 TABLET ORALLY TID MEDICATION LIST REVIEWED AND RECONCILED WITH THE PATIENT PAST MEDICAL HISTORY FATTY LIVER SMOKER HERNIATED DISCS ADRENAL MASS ANXIETY CHRONIC PAIN DEPRESSION FIBROMYALGIA HYPERLIPDEMIA SPINAL STENOSIS PSORIATAIC ARTHRITIS MIGRAINES SLEEP APNEA RIGHT CERVICAL RADICULOPATHY REFLUX ASTHMA ALLERGIES IV DYE: NAUSEA/VOMITING - ALLERGY - CRITICALITY LOW - ONSET DATE 02/05/2012 SURGICAL HISTORY C SECTION 1987 D & C FAMILY HISTORY FATHER: MOTHER: SON(S): ALIVE DAUGHTER(S): ALIVE 2 SON(S) , 1 DAUGHTER(S) - HEALTHY. UNKNOWN MUCH HISTORY SHE WAS ADOPTED. SOCIAL HISTORY GENERAL: TOBACCO USE ARE YOU A:CURRENT SMOKER ARE YOU INTERESTED IN QUITTING?THINKING ABOUT QUITTING COUNSELED THE PATIENT ON SMOKING CESSATION, EDUCATION [id number]/01/2019 HOW MANY CIGARETTES A DAY DO YOU SMOKE?6-10 PATIENT COUNSELED ON THE DANGERS OF TOBACCO USE AND URGED TO QUIT:02/19/2019 OTHERS AT HOME: CUSTODY OF [employer]. EDUCATION LEVEL OF EDUCATION:FINISHED COLLEGE DIET: REGULAR. LANGUAGE LANGUAGES SPOKEN:ICELANDIC DOMESTIC VIOLENCE DO YOU FEEL SAFE IN YOUR ENVIRONMENT?YES RECREATIONAL DRUG USE DRUG USE?NO EXERCISE: WALKS. LEARNING BARRIERS / SPECIAL NEEDS SPECIAL DEVICES?YES CPAP LUNG CANCER SCREENING SMOKING STATUS:CURRENT SMOKER IS THE PATIENT BETWEEN THE AGE OF 57 AND 79?YES HAS THE PATIENT EVER BEEN DIAGNOSED WITH LUNG CANCER?NO PAIN CLINIC PFS, CLERGY, PUBLIC HEALTH REFERRALS WAS THE PROVIDER NOTIFIED OF ANY PERTINENT INFO?YES HAS THE PATIENT BEEN EDUCATED REGARDING HIS/HER PLAN OF CARE?YES PLEASE DOCUMENT ANY ADDTIONAL DETAILS. ORIENTED TO PMC PROCEDURE, BILATERAL SIJ HAS THE PATIENT BEEN EDUCATED REGARDING PAIN, THE RISK FOR PAIN, THE IMPORTANCE OF EFFECTIVE PAIN MANAGEMENT, AND THE PAIN ASSESSMENT PROCESS?YES LATEX QUESTIONNAIRE LATEX ALLERGY : HAVE YOU EVER DEVELOPED ANY TYPE OF REACTION AFTER HANDLING LATEX PRODUCTS SUCH RUBBER GLOVES, CONDOMS, DIAPHRAGMS, BALLOONS, SOCKS, OR UNDERWEAR?NO LATEX ALLERGY : HAVE YOU EVER DEVELOPED ANY TYPE OF REACTION DURING OR AFTER DENTAL APPOINTMENT, VAGINAL/RECTAL EXAMINATION, SURGICAL PROCEDURE, OR ANY OTHER EXPOSURE?NO LATEX RISK : HAVE YOU EVER HAD ANY DIFFICULTY BREATHING OR HIVES AFTER EATING OR HANDLING ANY FRUITS, OR VEGETABLES; SUCH KIWI, BANANAS, STONE FRUITS, OR CHESTNUTSNO LATEX RISK : DO YOU HAVE A PREVIOUS PERSONAL HISTORY OF MORE THAN NINE SURGERIES, SPINA BIFIDA, OR REPEATED CATHERTIZATIONS? NO LATEX RISK : ARE YOU FREQUENTLY EXPOSED TO LATEX PRODUCTS IN YOUR OCCUPATION?NO DATE ASKED : 02/19/2019 CAFFEINE CAFFEINE USE?YES HOW OFTEN AND HOW MUCH? DAILY A COUPLE CUPS ADVANCE DIRECTIVE ADVANCE DIRECTIVE DISCUSSED WITH PATIENT:YES DISCUSSED WITH PT AND SHE DECLINES ANY PRINTED MATERIAL AT THIS TIME OR ANY ASSISTANCE FILLING IT OUT QUAKER [id number] JEHOVAH'S WITNESS MARITAL STATUS: .. ALCOHOL SCREENING DID YOU HAVE A DRINK CONTAINING ALCOHOL IN THE PAST YEAR?NO POINTS0 INTERPRETATIONNEGATIVE OCCUPATION: DISABLED. HOSPITALIZATION/MAJOR DIAGNOSTIC PROCEDURE SURGERY RELATED REVIEW OF SYSTEMS REVIEWED BY: PROVIDER: . CONSTITUTIONAL: ANY CHANGE IN YOUR MEDICAL CONDITION? NO . CHILLS NO . FEVER NO . INFECTION: DO YOU HAVE NEW INFECTIONS? NO . DO YOU HAVE HISTORY OF MRSA? NO . MUSCULOSKELETAL: ANY NEW PATTERNS OF PAIN OR NUMBNESS? NO . GASTROENTEROLOGY: ANY NEW CHANGE IN BOWEL CONTROL? NO . GENITOURINARY: ANY NEW CHANGE IN BLADDER CONTROL? NO . IS THERE A CHANCE YOU COULD BE ? NO . HEMATOLOGY/LYMPH: DO YOU TAKE ANY BLOOD THINNERS? (FOR EXAMPLE- COUMADIN, PLAVIX, AGGRENOX, PLATEL, PRADAXA, OR XARELTO) NO . WHEN WAS YOUR LAST DOSE? DATE: TIME: . NEUROLOGY: HAVE YOU FALLEN IN THE PAST 12 MONTHS? NO . ANY NEW EXTREMITY NUMBNESS OR WEAKNESS? NO . CARDIOLOGY: DO YOU HAVE A PACEMAKER OR DEFIBRILLATOR? NO . RESPIRATORY: HAVE YOU BEEN SICK IN THE PAST WEEK? NO . FEVER NO . FLU LIKE SYMPTOMS? NO . COUGH NO . INTEGUMENTARY: DO YOU HAVE ANY RASHES OR OPEN SORES? NO . ALLERGIC/IMMUNO: ARE YOU ALLERGIC TO IV DYE? YES . ANY NEW ALLERGIES? NO . PSYCHIATRIC: DO YOU HAVE THOUGHTS OF HURTING YOURSELF OR SOMEONE ELSE? NO . ARE YOU ABUSED, NEGLECTED, OR IN AN UNSAFE ENVIRONMENT? NO . ENDOCRINOLOGY: ARE YOU DIABETIC? NO . OTHER: DO YOU NEED ANY PRESCRIPTIONS? NO . IF YES, PLEASE LIST: ____ . ANY NEW PROBLEMS WITH YOUR MEDICATIONS? NO . WHEN DID YOU LAST EAT? 03/11/19 1930 . WHEN DID YOU LAST DRINK? 03/12/19 0600 . WHAT DID YOU LAST DRINK? WATER . NAME OF PERSON DRIVING YOU HOME? JOHNATHAN . DO YOU HAVE ANY OTHER QUESTIONS OR CONCERNS NO . VITAL SIGNS WT 194.6 LBS, HT 64 IN, BMI 33.40 INDEX, BP 113/65 MM HG, HR 92 /MIN, RR 16 /MIN, TEMP 97.2 F, OXYGEN SAT % 97%, NA INITIALS AW 1022. ASSESSMENTS INTERVERTEBRAL DISC DISORDER WITH RADICULOPATHY OF LUMBOSACRAL REGION - M51.17 (PRIMARY) LUMBOSACRAL SPINAL STENOSIS - M48.07 PROCEDURES PRE PROCEDURE DIAGNOSIS LUMBOSACRAL DISC DISORDER WITH RADICULOPATHY, LUMBOSACRAL SPINAL STENOSIS POST PROCEDURE DIAGNOSIS LUMBOSACRAL DISC DISORDER WITH RADICULOPATHY, LUMBOSACRAL SPINAL STENOSIS PROCEDURE LUMBOSACRAL EPIDURAL STEROID INJECTION UNDER FLUOROSCOPIC GUIDANCE SURGEON DR. ANNALISA BURGER GREENHOUSE TECHNICIAN NONE ANESTHESIA LOCAL PRE PROCEDURE NOTE THE PATIENT HAS A HISTORY OF CHRONIC LOW BACK PAIN. I EVALUATED THE PATIENT AND REVIEWED THE CHART. I WENT OVER THE RISKS, ALTERNATIVES, AND BENEFITS ASSOCIATED WITH THIS PROCEDURE. THE PATIENT WOULD LIKE TO PROCEED AND GIVE CONSENT TO PERFORMED THE PROCEDURE. THE PATIENT DENIES UNEXPLAINABLE WEIGHT LOSS, FEVER, CHILLS, OR NEW CHANGES IN URINARY OR BOWEL CONTROL. DESCRIPTION OF PROCEDURE THE PATIENT WAS BROUGHT TO THE PROCEDURE ROOM AND PLACED IN THE PRONE POSITION. THE LUMBOSACRAL AREA WAS CLEANED WITH BETADINE SOLUTION AND DRAPED ASEPTICALLY. THE PROCEDURE WAS DONE UNDER STERILE CONDITIONS. I CHECKED LATERALITY AND THE LEVEL WHERE THE PROCEDURE WAS GOING TO BE PERFORMED WITH THE PATIENT AND THE SUPPORTING STAFF AT THE MOMENT OF THE TIME OUT IN THE PROCEDURE ROOM. UNDER FLUOROSCOPIC GUIDANCE, THE TARGET POINT WAS SELECTED AT THE INTERLAMINAR LEVEL OF L5-S1. LIDOCAINE WAS USED TO NUMB THE SKIN AND THE SUBCUTANEOUS TISSUE BELOW IT. EPIDURAL TUOHY NEEDLE, 17-GAUGE, WAS ADVANCED UNDER FLUOROSCOPIC GUIDANCE AND FOLLOWING PATIENT FEEDBACK UNTIL THE EPIDURAL SPACE WAS REACHED, 7 CM DEEP INTO THE SKIN BY THE LOSS OF RESISTANCE TECHNIQUE. ISOVUE M DYE 30%, 0.25 ML, WAS INJECTED SHOWING ADEQUATE SPREAD OF THE DYE. THEN, A SOLUTION OF 3 ML OF NORMAL SALINE WITH DEPO-MEDROL 60 MG WAS INJECTED SLOWLY FOLLOWING PATIENT FEEDBACK. THERE WAS NO EVIDENCE OF BLOOD, PARESTHESIA OR CEREBROSPINAL FLUID DURING THE PROCEDURE. THE PATIENT WAS SENT TO THE RECOVERY ROOM. THE PATIENT WAS MOVING THE EXTREMITIES AND DOING WELL. THERE WAS NO COMPLICATION DURING THE PROCEDURE. FLUOROSCOPY TIME WAS 21 SECONDS. POST PROCEDURE NOTE THE PATIENT WILL BE SEEN IN A FOLLOW UP IN THE NEXT FEW WEEKS. INSTRUCTIONS WERE GIVEN, QUESTIONS WERE ANSWERED, AND THE PATIENT EXPRESSED UNDERSTANDING AND AGREES WITH THE PLAN. I, LIZ YANG, DOCUMENTED THE ABOVE INFORMATION ACTING A SCRIBE FOR DR. BURGER. I HAVE REVIEWED THE ABOVE DOCUMENT, WRITTEN BY LIZ DAVE AND I VERIFY THAT IT IS ACCURATE. [facility] FLUORO GUIDE SPINE INJECTION (PAIN)[id number] PROCEDURE CODES 51632 LUMBAR/SACRAL W/ IMAGING [id number] RADXPS IN END [id number] PXD DISPOSITION & COMMUNICATION FOLLOW UP 2 WEEKS ELECTRONICALLY SIGNED BY ANNALISA BURGER MD, MD ON 03/30/2019 AT 07:17 PM EDT DISCLAIMER : THIS IS A VISIT SUMMARY EXTRACTED FROM THE [employer] CHART. IT IS NOT A COPY OF THE [employer] PROGRESS NOTE. RAYD
== END ==
LOC: M PAIN 10:30
PROVIDERS: ATTEND Anesthesiology
DX: G89.29 Other chronic pain (principal); M51.17 Intervertebral disc disorders with radiculopathy, lumbosacral region; M48.07 Spinal stenosis, lumbosacral region; M79.7 Fibromyalgia; E78.5 Hyperlipidemia, unspecified; L40.52 Psoriatic arthritis mutilans; G43.909 Migraine, unspecified, not intractable, without status migrainosus; G47.30 Sleep apnea, unspecified; K21.9 Gastro-esophageal reflux disease without esophagitis; J45.909 Unspecified asthma, uncomplicated; F17.210 Nicotine dependence, cigarettes, uncomplicated; Z91.041 Radiographic dye allergy status; Z79.899 Other long term (current) drug therapy; Z86.59 Personal history of other mental and behavioral disorders
CPT/HCPCS: 62323; J1030; Q9967

== ENCOUNTER → 2019-06-27 | Outpatient (CLI) | payer MEDICARE, MEDICAID ==
--- NOTE | 2019-07-16 03:30 | ECWPNPC ---
PATIENT NAME: FRANCES BLISS : 1965 GENDER: FEMALE VISIT DATE: 06/27/2019 DISCHARGE DATE: 06/27/19 1029 VISIT LOCKED DATE TIME: PHYSICIAN: ISMA WALDROP RESOURCE: ISMA WALDROP DISCLAIMER : THIS IS A VISIT SUMMARY EXTRACTED FROM THE [facility] CHART. IT IS NOT A COPY OF THE [employer] PROGRESS NOTE. MAGDA
== END ==
LOC: M PAIN 09:45
PROVIDERS: ATTEND Nurse Practitioner Family
DX: M51.17 Intervertebral disc disorders with radiculopathy, lumbosacral region (principal); G89.29 Other chronic pain; Z86.59 Personal history of other mental and behavioral disorders; M79.7 Fibromyalgia; E78.5 Hyperlipidemia, unspecified; G43.909 Migraine, unspecified, not intractable, without status migrainosus; G47.30 Sleep apnea, unspecified; K21.9 Gastro-esophageal reflux disease without esophagitis; J45.909 Unspecified asthma, uncomplicated; F17.210 Nicotine dependence, cigarettes, uncomplicated; Z91.041 Radiographic dye allergy status; Z79.899 Other long term (current) drug therapy

== ENCOUNTER → 2022-06-08 | Outpatient (CLI) | payer MEDICARE, MEDICAID | LOC: M PAIN 13:00 | PROVIDERS: ATTEND Nurse Practitioner Family | DX: M46.1 Sacroiliitis, not elsewhere classified (principal); M51.16 Intervertebral disc disorders with radiculopathy, lumbar region; M79.7 Fibromyalgia; G43.909 Migraine, unspecified, not intractable, without status migrainosus; G47.30 Sleep apnea, unspecified; K21.9 Gastro-esophageal reflux disease without esophagitis; J45.909 Unspecified asthma, uncomplicated; F17.210 Nicotine dependence, cigarettes, uncomplicated; Z86.59 Personal history of other mental and behavioral disorders; Z91.041 Radiographic dye allergy status; Z79.899 Other long term (current) drug therapy ==

== ENCOUNTER → 2022-10-13 | Outpatient (CLI) | payer OTHER, MEDICAID | LOC: MERGE 10-03 11:15 → M RAD 16:50 | PROVIDERS: ATTEND Internal Medicine Critical Care Medicine | DX: R91.1 Solitary pulmonary nodule (principal) ==

== ENCOUNTER → 2023-05-24 | Outpatient (CLI) | payer OTHER, MEDICAID | LOC: M RAD 15:30 | PROVIDERS: ATTEND Internal Medicine Critical Care Medicine | DX: R91.1 Solitary pulmonary nodule (principal) ==

== ENCOUNTER → 2024-08-14 | Outpatient (CLI) | payer OTHER, MEDICAID | LOC: M PLAIMG 12:16 | PROVIDERS: ATTEND Internal Medicine Critical Care Medicine | DX: R91.1 Solitary pulmonary nodule (principal) ==

== ENCOUNTER → 2025-09-29 | Outpatient (CLI) | payer OTHER, MEDICAID | LOC: M RAD 16:41 | PROVIDERS: ATTEND Internal Medicine Critical Care Medicine | DX: Z12.2 Encounter for screening for malignant neoplasm of respiratory organs (principal); F17.218 Nicotine dependence, cigarettes, with other nicotine-induced disorders ==